=== PATIENT | male | born 1990 | race Two or more races ===

== ENCOUNTER 2019-06-01 09:44 | Emergency (ER) | payer SELFPAY ==
[~2019-06-01] VITALS: Ht 180.3 cm; Wt 80.3 kg
--- NOTE | 2019-06-01 09:55 | NUR ---
[id number], WAS FOUND IN A HOTEL ICE ROOM SLEEPING, VERBALLY NON VERBAL, BG 109 DIE TESTER. ALERT AND ORIENTED X1 NON VERBAL AT THIS TIME. BREATHING EVEN AND UNLABORED WITH NO DISTRESS NOTED. SKIN INTACT. AWAITING TO BE SEEN BY
--- NOTE | 2019-06-01 10:05 | NUR ---
ATTORNEY LAWYER AT BEDSIDE
[2019-06-01 10:08] LABS: BASOPHILS % (AUTO) 0.5 % (0.0-2.0); EOSINOPHILS % (AUTO) 0.7 % (0.0-6.0); HEMATOCRIT 43 % (39-51); HEMOGLOBIN 14.7 g/dL (13.5-17.5); LYMPHOCYTES # (AUTO) 1.2 /CMM (0.8-4.8); LYMPHOCYTES % (AUTO) 18.1 % (20.0-44.0); MEAN CORPUSCULAR HGB CONC 35 g/dl (31.0-36.0); MEAN CORPUSCULAR VOLUME 86 fL (80-96); MONOCYTES # (AUTO) 0.7 /CMM (0.1-1.30); MONOCYTES % (AUTO) 10.3 % (2.0-12.0); NEUTROPHILS # (AUTO) 4.6 /CMM (1.8-8.9); NEUTROPHILS % (AUTO) 70.4 % (43.0-81.0); PLATELET COUNT (AUTO) 217 /CMM (150-450); RED BLOOD CELL COUNT(AUTO) 4.92 MIL/uL (4.5-6.0); WHITE BLOOD COUNT (AUTO) 6.5 K/uL (4.3-11.0)
[2019-06-01 10:16] LABS: CALCIUM, SERUM 8.9 mg/dL (8.5-10.1); CARBON DIOXIDE 30 mmol/L (21-32); CHLORIDE 99 mmol/L (98-107); CREATININE 1.2 mg/dL (0.6-1.3); GLUCOSE 122 mg/dL (74-106); POTASSIUM 4.3 mmol/L (3.5-5.1); SODIUM SERUM 138 mmol/L (136-145); UREA NITROGEN, BLOOD 20 mg/dL (7-18)
--- NOTE | 2019-06-01 10:20 | NUR ---
HOT DIPPER AT BEDSIDE TO TAKE PATIENT FOR CT SCAN
[2019-06-01 10:21] LABS: ACETAMINOPHEN 0 ug/ml (10-30); ALANINE AMINOTRANSFERASE 31 U/L (12-78); ALBUMIN 4.2 g/dL (3.4-5.0); ALCOHOL, BLOOD < 3 mg/dL (0-0); ALKALINE PHOSPHATASE 84 U/L (46-116); ASPARTATE AMINOTRANSFERASE 19 U/L (15-37); BILIRUBIN,DIRECT 0.2 mg/dL (0.0-0.2); BILIRUBIN,TOTAL 0.7 mg/dL (0.2-1.0); SALICYLATE 0.8 mg/dL (2.8-20.0); TOTAL PROTEIN, SERUM 7.2 g/dL (6.4-8.2)
--- NOTE | 2019-06-01 12:18 | NUR ---
Patient discharged to home in stable condition. Written and verbal after care instructions given. Patient verbalizes understanding of instruction.
[2019-06-01 12:20] VITALS: BP 140/80
== END 2019-06-01 12:37 | disposition home or self-care (01) ==
LOC: ER 09:44
DX: G93.40 Encephalopathy, unspecified (principal); R41.82 Altered mental status, unspecified
CPT/HCPCS: 36415; 70450; 80048; 80076; 80307; 80329; 85025; 99284; G0480